=== PATIENT | female | born 1990 | race Two or more races ===

== ENCOUNTER → 2018-08-14 10:03 | Day surgery (SDC) | payer OTHER ==
[~2018-08-14 10:03] MED LIST: Acetaminophen TAB* 325 MG PO PRN; Buffered Lidocaine 1% SYRIN* 1 ML/SYRINGE INTRADERM ONE; Bupivacaine 0.5%* 50 ML VIAL ONE; Dexamethasone IV* 4 MG/ML 1 ML (4 MG) IV SLOW PU ONE; Dexamethasone IV* 4 MG/ML 1 ML (4 MG) ONE; Famotidine TAB* 20 MG ONE; Famotidine TAB* 20 MG PO ONE; Glycopyrrolate IV* 0.2 MG/ML 1 ML VIAL ONE; Ketorolac INJ* 30 MG/ML 1 ML VIAL IV PRN; Ketorolac INJ* 30 MG/ML 1 ML VIAL ONE; Lactated Ringers 1000 ML Bag* 1,000 ML IV SCH; Lidocaine 2% PF * 5 ML VIAL ONE; Midazolam* 1 MG/ML 5 ML VIAL (5 MG) ONE; Naloxone* 0.4 MG/ML 1 ML VIAL IV PRN; Neostigmine Methylsulfate* 3 MG/3 ML SYRINGE ONE; Ondansetron INJ* 2 MG/ML VIAL IV PRN; Ondansetron INJ* 2 MG/ML VIAL ONE; Propofol* 10 MG/ML 20 ML BTL ONE; Rocuronium* 10 MG/ML VIAL ONE; ceFAZolin 2 GM PREMIX in ORs 2 GM/50 ML BAG ONE; fentaNYL* 50 MCG/ML 2 ML VIAL (100 MCG VIAL) IV PRN; fentaNYL* 50 MCG/ML 5 ML VIAL (250 MCG VIAL) ONE; oxyCODONE/Acetamin 5/325 MG* TAB ONE; oxyCODONE/Acetamin 5/325 MG* TAB PO PRN
[2018-08-14 14:32] VITALS: BP 125/83
--- NOTE | 2018-08-14 15:13 | OP ---
DATE OF OPERATION: 08/14/18 [facility] DATE OF : 88 ATTENDING SURGEON: Cheko Poon MD. SLUDGE CONTROL ATTENDANT: Yenny Grubbs NP. PRE-OP DIAGNOSIS: Cholecystitis. POST-OP DIAGNOSIS: Cholecystitis. OPERATIVE PROCEDURE: Laparoscopic cholecystectomy. INDICATIONS FOR PROCEDURE: Cholecystitis. Risks of surgery included, but not limited to bleeding, infection, injury to intraabdominal contents including the bowel; the bile duct; liver, cystic duct leak, and no relief of symptoms were explained. The patient seemed to understand and agreed to the procedure and all questions were answered. DESCRIPTION OF PROCEDURE: The patient was taken to the operating room and placed supine. Preoperative antibiotics were given. After the successful induction of general endotracheal anesthesia, the abdomen was prepped and draped in sterile fashion. A 5 mm trocar was placed in the subxiphoid position under direct visualization of the camera using a bladeless Optiview trocar. Pneumoperitoneum was achieved at 15 mmHg. The camera was placed in the abdomen and the abdomen was scanned. There was no obvious injury from trocar placement. A 12 mm umbilical and 2 right-sided 5 mm trocars were placed all under direct visualization of the camera. The patient was placed in the reverse Trendelenburg position, tilted slightly towards her left. The fundus of the gallbladder was grasped and retracted up into the liver. The cystic duct was identified, isolated, and clipped and divided. The common cystic artery was identified, isolated, clipped, and divided. The gallbladder was removed from the hepatic bed using Bovie cautery hook. It was placed into an Endobag and removed through the umbilical port site. The right upper quadrant was inspected. The clips were in place. Hemostasis was intact. EBL was minimal for the case. The abdomen was once again scanned. No obvious injuries were noted. The trocars were removed as pneumoperitoneum was released from the abdomen. The skin was closed at each side using 3-0 Monocryl and glue on the skin. The patient tolerated the procedure well and she was extubated and taken to the recovery room in stable condition. [id number] #: [id number] MTDD
== END | disposition home or self-care (01) ==
LOC: OR 10:03
PROVIDERS: ATTEND Surgery
DX: K80.10 Calculus of gallbladder with chronic cholecystitis without obstruction (principal); K21.9 Gastro-esophageal reflux disease without esophagitis
CPT/HCPCS: 81025; 88304; A9270-GY; J0690; J1100; J1885; J2250; J2405; J2704; J2710; J3010; J3490